=== PATIENT | female | born 1995 | race American Indian/Alaskan Native ===

== ENCOUNTER 2020-04-20 10:11 | Emergency (ER) | payer SELFPAY ==
[2020-04-20 10:18] VITALS: BP 104/62
[2020-04-20] MEDS ORDERED: BALANCED SALT IRRIG (BSS) OPHTH SOLN 15 ML OU ONE (12:39)
[2020-04-20] MEDS ORDERED: FLUORESCEIN 1 MG STRIP OP ONE (12:39)
[2020-04-20 12:44] LABS: HCG Qualitative,Urine Negative (Negative)
--- NOTE | 2020-04-20 12:44 | Emergency Department Report ---
ED Eye Problem HPI - General Chief complaint: Eye Problems Stated complaint: PINK EYE/DISCOMFORT Time Seen by Provider: 04/20/20 11:15 Source: patient Mode of arrival: Ambulatory Limitations: No Limitations - History of Present Illness Initial comments: The patient was evaluated in the emergency department for symptoms described in the history of present illness. He/she was evaluated in the context of the global COVID-19 pandemic, which necessitated consideration that the patient might be at risk for infection with the virus that causes COVID-19. Institutional protocols and algorithms that pertain to the evaluation of patients at risk for COVID-19 are in a state of rapid change based on information released by regulatory bodies including the CDC and federal and state organizations. These policies and algorithms were followed during the patient's care in the emergency department. Please note that these policies, procedures and recommendations changed on a rapid basis. 24-year-old -Portuguese female presents to the emergency room for 1 bilateral watery eyes and irritation with redness for the last 2 days. Patient states that it started off in her right eye and she thought that wearing her false eyelashes may have irritated her eyes. Patient states that she is they have been draining but no change of vision no pain. Patient also reports that she has been having urinary urgency and frequency and is concerned that she may have a urinary tract infection. Patient denies any nausea no vomiting no abdominal pain pelvic pain vaginal discharge or vaginal bleeding. Reports her last menstrual period was 03/27/2020. Onset/Timin -: days(s) Location: right eye (Greater than), both eyes Eye Symptoms: redness, itching Severity: mild Consistency: constant (Irritation) Context: trauma (Possible eyelash irritation) Treatments Prior to Arrival: none - Related Data Home Medications Medication Instructions Recorded Confirmed Last Taken Naproxen Sodium [Aleve] 220 mg PO Q8H PRN 08/27/14 08/27/14 Unknown Previous Rx's Medication Instructions Recorded Last Taken Type Ibuprofen [Motrin] 600 mg PO Q8H PRN #30 tablet 08/27/14 Unknown Rx methOCARBAMOL [Robaxin] 500 mg PO BID #10 tab 08/27/14 Unknown Rx traMADoL [Ultram] 50 mg PO Q6HR PRN #14 tablet 08/27/14 Unknown Rx HYDROcodone/APAP 5-325 [[place] 1 each PO Q6HR PRN #20 tablet 03/02/15 Unknown Rx 5-325 mg TAB] Ibuprofen [Motrin 600 MG tab] 600 mg PO Q8H PRN #60 tablet 03/02/15 Unknown Rx Ondansetron [Zofran Odt] 4 mg PO Q4H #20 tab.rapdis 03/02/15 Unknown Rx Sulfamethoxazole/Trimethoprim 1 each PO BID #14 tablet 03/02/15 Unknown Rx [Bactrim DS TAB] Acetaminophen/Codeine [Tylenol #3] 1 tab PO Q6H PRN #20 tab 06/22/15 Unknown Rx Penicillin Vk [Veetids TAB] 500 mg PO QID #40 tablet 06/22/15 Unknown Rx Erythromycin [Erythromycin Ophth 1 strip OU QID 10 Days #1 tube 04/20/20 Unknown Rx Oint] Nitrofurantoin [place]/M-Cryst 100 mg PO Q12HR 7 Days #14 capsule 04/20/20 Unknown Rx [Macrobid CAP] Allergies Allergy/AdvReac Type Severity Reaction Status Date / Time No Known Allergies Allergy Verified 06/22/15 15:58 ED Review of Systems ROS: Stated complaint: PINK EYE/DISCOMFORT Other details as noted in HPI Comment: All other systems reviewed and negative ED Past Medical Hx - Past Medical History Previous Medical History?: Yes Hx Headaches / Migraines: Yes - Surgical History Past Surgical History?: No - Social History Smoking Status: Current Every Day Smoker Substance Use Type: Alcohol, Marijuana - Medications Home Medications: Home Medications Medication Instructions Recorded Confirmed Last Taken Type Ibuprofen [Motrin] 600 mg PO Q8H PRN #30 tablet 08/27/14 Unknown Rx Naproxen Sodium [Aleve] 220 mg PO Q8H PRN 08/27/14 08/27/14 Unknown History methOCARBAMOL [Robaxin] 500 mg PO BID #10 tab 08/27/14 Unknown Rx traMADoL [Ultram] 50 mg PO Q6HR PRN #14 tablet 08/27/14 Unknown Rx HYDROcodone/APAP 5-325 [[place] 1 each PO Q6HR PRN #20 tablet 03/02/15 Unknown Rx 5-325 mg TAB] Ibuprofen [Motrin 600 MG tab] 600 mg PO Q8H PRN #60 tablet 03/02/15 Unknown Rx Ondansetron [Zofran Odt] 4 mg PO Q4H #20 tab.rapdis 03/02/15 Unknown Rx Sulfamethoxazole/Trimethoprim 1 each PO BID #14 tablet 03/02/15 Unknown Rx [Bactrim DS TAB] Acetaminophen/Codeine [Tylenol #3] 1 tab PO Q6H PRN #20 tab 06/22/15 Unknown Rx Penicillin Vk [Veetids TAB] 500 mg PO QID #40 tablet 06/22/15 Unknown Rx Erythromycin [Erythromycin Ophth 1 strip OU QID 10 Days #1 tube 04/20/20 Unknown Rx Oint] Nitrofurantoin [place]/M-Cryst 100 mg PO Q12HR 7 Days #14 capsule 04/20/20 Unknown Rx [Macrobid CAP] ED Physical Exam - General Limitations: No Limitations General appearance: alert, in no apparent distress - Head Head exam: Present: atraumatic, normocephalic - Eye Eye exam: Present: normal appearance, PERRL - Expanded Eye Exam Expanded Eyelids: Normal Inspection: Left Pupils: Regular, Round: Bilateral, Reactive: Bilateral, Mydriasis: Bilateral, Miosissis: Bilateral Sclera/Conjunctival: Injection: Bilateral Visual acuity (R) = 20/: 20 Visual acuity (L) = 20/: 30 With correction: No IOP measured with: other (Fluorescein exam within normal limits) - ENT ENT exam: Present: mucous membranes moist - Neck Neck exam: Present: normal inspection, full ROM - Respiratory Respiratory exam: Present: normal lung sounds bilaterally. Absent: respiratory distress - Cardiovascular Cardiovascular Exam: Present: regular rate, normal rhythm. Absent: systolic murmur, diastolic murmur, rubs, gallop - GI/Abdominal GI/Abdominal exam: Present: soft. Absent: distended, tenderness, guarding - Back Exam Back exam: Present: normal inspection, full ROM. Absent: CVA tenderness (R), CVA tenderness (L) - Neurological Exam Neurological exam: Present: alert, oriented X3, normal gait - Psychiatric Psychiatric exam: Present: normal affect, normal mood - Skin Skin exam: Present: warm, dry, intact, normal color. Absent: rash ED Course Vital Signs 04/20/20 10:13 Temperature 98.5 F Pulse Rate 73 Respiratory 18 Rate Blood Pressure 104/62 O2 Sat by Pulse 100 Oximetry ED Medical Decision Making - Medical Decision Making 24-year-old -Portuguese female presents to the emergency room for 1 bilateral watery eyes and irritation with redness for the last 2 days. Patient states that it started off in her right eye and she thought that wearing her false eyelashes may have irritated her eyes. Patient states that she is they have been draining but no change of vision no pain. Patient also reports that she has been having urinary urgency and frequency and is concerned that she may have a urinary tract infection. Patient denies any nausea no vomiting no abdominal pain pelvic pain vaginal discharge or vaginal bleeding. Reports her last menstrual period was 03/27/2020. Urinalysis has been sent. Ordered visual acuity. Order fluorescein exam. Recent exam was within normal limits. Patient will be treated for conjunctivitis of her left eye. Patient also was noted to have WBCs in her urine. We will treat patient with Macrobid encouraged patient to drink plenty of fluids. Encourage patient to void after intercourse and do not hold her urine. Critical care attestation.: If time is entered above; I have spent that time in minutes in the direct care of this critically ill patient, excluding procedure time. ED Disposition Clinical Impression: Bilateral conjunctivitis Qualifiers: Conjunctivitis type: acute Acute conjunctivitis type: unspecified Qualified Code(s): H10.33 - Unspecified acute conjunctivitis, bilateral UTI (urinary tract infection) Qualifiers: Urinary tract infection type: site unspecified Hematuria presence: with hematuria Qualified Code(s): N39.0 - Urinary tract infection, site not specified Disposition: DC-01 TO HOME OR SELFCARE Is pt being admited?: No Does the pt Need Aspirin: No Condition: Stable Instructions: Conjunctivitis (ED) Additional Instructions: Complete antibiotics for urinary tract infection. Increase your fluid intake. Use your eye ointment as prescribed. Wash your hands prior to and after administering medication. Follow-up with your primary care provider in 2 to 3 days for repeat urine. Prescriptions: Erythromycin [Erythromycin Ophth Oint] 1 strip OU QID 10 Days #1 tube Nitrofurantoin [place]/M-Cryst [Macrobid CAP] 100 mg PO Q12HR 7 Days #14 capsule Referrals: PRIMARY CARE, [Primary Care Provider] - 3-5 Days [facility] [Provider Group] - 3-5 Days Forms: Work/School Release Form(ED)
[2020-04-20 12:46] LABS: Bacteria,Urine 3+ /HPF (Negative); Bilirubin,Urine NEG (Negative); Blood,Urine LG (Negative); Color,Urine Yellow (Yellow); Mucus,Urine 2+ /HPF; Protein,Urine <15 mg/dL mg/dL (Negative); Urobilinogen,Urine < 2.0 mg/dL (<2.0)
== END 2020-04-20 13:45 | disposition home or self-care (01) ==
LOC: ED 10:11
DX: H10.9 Unspecified conjunctivitis (principal); N39.0 Urinary tract infection, site not specified; F17.200 Nicotine dependence, unspecified, uncomplicated; F12.90 Cannabis use, unspecified, uncomplicated; G43.909 Migraine, unspecified, not intractable, without status migrainosus; Z79.899 Other long term (current) drug therapy
CPT/HCPCS: 81001; 81025; 87076; 87086; 87186